=== PATIENT | female | born 1945 ===

== ENCOUNTER 2017-11-03 14:10 | Inpatient (IN) | payer OTHER ==
[~2017-11-03] VITALS: Ht 147.3 cm; Wt 47.2 kg
[2017-11-23] MEDS ORDERED: METFORMIN HCL500 MG PO (10:04)
[2017-11-23] MEDS ORDERED: SIMVASTATIN20 MG PO (10:04)
[2017-11-23] MEDS ORDERED: GABAPENTIN100 MG PO (10:04)
[2017-11-23] MEDS ORDERED: ALTACE5 MG PO (10:04)
[2017-12-02] MEDS ORDERED: CIPRO500 MG PO (08:53)
[2017-12-02] MEDS ORDERED: CODE1TAB37 PO (08:53)
== END 2017-12-02 09:47 | DRG 743 ==
LOC: O/R 11-30 06:37 → OB/GYN 11-30 06:37 → SURG 11-30 07:00 → OB/GYN 11-30 11:31
PROVIDERS: Obstetrics & Gynecology Gynecology
PROC: 0JQC0ZZ Repair Pelvic Region Subcutaneous Tissue and Fascia, Open Approach (ICD-10-PCS; 2017-11-30)
PROC: 0USG7ZZ Reposition Vagina, Via Natural or Artificial Opening (ICD-10-PCS; 2017-11-30)
PROC: 0UT97ZZ Resection of Uterus, Via Natural or Artificial Opening (ICD-10-PCS; principal; 2017-11-30 07:00)
DX: N81.3 Complete uterovaginal prolapse (principal); N80.0 Endometriosis of uterus; D25.0 Submucous leiomyoma of uterus